=== PATIENT | male | born 1960 | race Caucasian/White ===

== ENCOUNTER 2025-01-18 12:15 | Day surgery (SDC) | payer MEDICARE, BC, SELFPAY ==
--- NOTE | 2025-01-15 14:12 | EKG_ITS ---
[facility] Test Date: 2025-01-15 Pat Name: CARMELA DEAN Department: Room: - Gender: Male Loss Prevention Representative: SAURABH : 1960 Requested By: Luis A Buitrago Order Number: [id number] Reading MD: Luis A Buitrago Measurements Intervals [place] Rate: 79 P: 23 AR: 158 QRS: 4 QRSD: 108 T: 13 QT: 382 QTc: 440 Interpretive Statements SINUS RHYTHM LOW QRS VOLTAGE IN PRECORDIAL LEADS [QRS DEFLECTION < 1.0 mV IN CHEST LEADS] No previous ECG available for comparison /[id number]/[email or web address]/[id number].pdf
[2025-01-15 14:32] LABS: Prothrombin Time 10.9 Seconds (9.0-12.2)
[2025-01-15 14:36] LABS: Alanine Aminotransferase 10 U/L (10-49); Albumin, Serum 4.2 gm/dL (3.4-4.8); Albumin/Globulin Ratio 1.7 (1.2-2.2); Alkaline Phosphatase 78 U/L (46-116); Anion Gap 6 (7-16); Aspartate Amino Transferase 14 U/L (0-34); BUN/Creatinine Ratio 8 Ratio (12-20); Bilirubin,Total 0.4 mg/dL (0.3-1.2); Blood Urea Nitrogen 9 mg/dL (9-23); Calcium 8.6 mg/dL (8.3-10.6); Calcium (Corrected) 8.6 mg/dL (8.5-10.1); Carbon Dioxide 27.9 mMol/L (20.0-31.0); Chloride 107 mMol/L (98-107); Creatinine (Component) 1.1 mg/dL (0.6-1.3); Globulin 2.5 gm/dL (2.3-3.5); Glucose 93 mg/dL (74-106); Osmolality,Calculated 279 (275-295); Potassium 3.8 mMol/L (3.4-5.1); Sodium 141 mMol/L (136-145); Total Protein 6.7 gm/dL (5.7-8.2); eGFR > 60 See Note
[2025-01-15 15:05] VITALS: BMI 48.7
[2025-01-18 13:10] VITALS: BP 153/77; PULSE 86; RESP 19; TEMP 36.2; O2SAT 96; BMI 48.7
[2025-01-18] MEDS: RINGERS LACTATED 1000 ML 1,000 ML 20 ML IV (15:43)
[2025-01-18 16:05] VITALS: BP 136/86; PULSE 83; RESP 20; TEMP 36.2; O2SAT 99
[2025-01-18 16:10] VITALS: BP 135/72; PULSE 75; RESP 20; TEMP 36.2; O2SAT 98
[2025-01-18 16:15] VITALS: BP 127/81; PULSE 75; RESP 18; TEMP 36.2; O2SAT 98
[2025-01-18 16:20] VITALS: BP 138/71; PULSE 75; RESP 18; TEMP 36.2; O2SAT 95
[2025-01-18 16:35] VITALS: BP 123/74; PULSE 71; RESP 14; TEMP 36.3; O2SAT 97
--- NOTE | 2025-01-18 16:47 | SUR.PHASEII ---
pt awake and alert, breathing unlabored on room air. v/s stable. pt able to ambulate to wheelchair with steady gait. d/c instructions given with daughter Tory in room, all questions answered. pt d/c via wheelchair with all belongings.
== END 2025-01-18 16:47 | disposition home or self-care (01) ==
PROVIDERS: PCP Family Medicine; Referring Provider Specialist; Visit Provider Specialist
PROC: 0DJD8ZZ Inspection of Lower Intestinal Tract, Via Natural or Artificial Opening Endoscopic (ICD-10-PCS; CPT 45378; principal; 2025-01-18 13:30)
DX: K64.9 Unspecified hemorrhoids (principal); Z01.810 Encounter for preprocedural cardiovascular examination
CPT/HCPCS: 45378; 36415; 80053; 85610; 85730; 93005; J7120